=== PATIENT | female | born 1985 | race Caucasian/White ===

== ENCOUNTER → 2019-05-06 | Outpatient (CLI) | payer OTHER ==
[~2019-05-06] MED LIST: DILT60TA3 PO; DOCU50CA9 PO; DULO20CA PO; ERGO500027 PO; GABA600T7 PO; HYDR-2145 PO; LOSA-73 PO; OXYC-325 PO; POTA10TA12 PO; ZOLP5TAB PO
[2019-05-06 12:53] LABS: BASO # 0.1 x10^3/uL (0.0-0.2); BASO % 1 % (0-3); EOS # 0.4 x10^3/uL (0.0-0.7); EOS % 4 % (0-3); HEMATOCRIT 39.6 % (36.0-47.0); HEMOGLOBIN 13.4 g/dL (12.0-15.5); LYMPH % 26 % (24-48); MEAN CORPUSCULAR HEMOGLOBIN 29 pg (25-35); MEAN CORPUSCULAR HGB CONC 34 g/dL (31-37); MEAN CORPUSCULAR VOLUME 86 fL (79-100); MONO # 0.9 x10^3/uL (0.0-1.1); MONO % 8 % (0-9); NEUT # 7.2 x10^3/uL (1.8-7.7); NEUT % 61 % (31-73); PLATELET COUNT 295 x10^3/uL (140-400); RED CELL DISTRIBUTION WIDTH 13.5 % (11.5-14.5); WHITE BLOOD COUNT 11.8 x10^3/uL (4.0-11.0)
[2019-05-06 13:22] LABS: ALBUMIN 4.1 g/dL (3.4-5.0); CALCIUM 9.5 mg/dL (8.5-10.1); CREATININE 0.7 mg/dL (0.6-1.0); GFR 95.2; POTASSIUM 3.6 mmol/L (3.5-5.1); TOTAL BILIRUBIN 0.3 mg/dL (0.2-1.0)
== END ==
LOC: SURGPAT 11:47
PROVIDERS: ATTEND Surgery
DX: Z01.818 Encounter for other preprocedural examination (principal); K82.8 Other specified diseases of gallbladder
CPT/HCPCS: 36415; 80048; 82040; 82247; 85025

== ENCOUNTER 2019-05-11 07:52 | Day surgery (SDC) | payer OTHER ==
[~2019-05-11] VITALS: Ht 157.5 cm; Wt 76.5 kg
[~2019-05-11 07:52] MED LIST changes: +BUPIVACAINE-EPI 0.5%-1:200000 MPF 30 ML VIAL. INJ ONE; -DOCU50CA9 PO; +HYDROmorphone 2 MG/ML VIAL IV PRN; +LIDOCAINE 1% PF 2 ML VIAL. ID PRN; +MORPHINE SULFATE 2 MG/ML VIAL. IV PRN; +ONDANSETRON PF 4 MG/2 ML VIAL. IV PRN; -OXYC-325 PO; +PROCHLORPERAZINE 10 MG/2 ML VIAL. IV PRN; +fentaNYL PF VIAL 100 MCG/2 ML VIAL IV PRN
[2019-05-11] MEDS: IV RINGERS,LACTATED 1000ML 1,000 ML IV SCH ×2 (08:31→11:31)
[2019-05-11] MEDS ORDERED: fentaNYL PF VIAL 100 MCG/2 ML VIAL ONE (08:44)
[2019-05-11] MEDS ORDERED: ROCURONIUM 100 MG/10 ML VIAL. ONE (08:44)
[2019-05-11] MEDS ORDERED: MIDAZOLAM HCL/PF 2 MG/2 ML VIAL. ONE (08:45)
[2019-05-11] MEDS ORDERED: ROCURONIUM 50 MG/5 ML VIAL. ONE (08:45)
[2019-05-11] MEDS ORDERED: KETOROLAC 30 MG/ML VIAL. ONE (08:47)
[2019-05-11] MEDS ORDERED: LIDOCAINE 2% PF 5 ML VIAL. ONE (08:47)
[2019-05-11] MEDS ORDERED: ONDANSETRON PF 4 MG/2 ML VIAL. ONE ×2 (08:47→10:17)
[2019-05-11] MEDS ORDERED: DEXAMETHASONE SOD PHOS 4 MG/ML VIAL ONE ×2 (08:47)
[2019-05-11] MEDS ORDERED: PROPOFOL 20 ML IV ONE (08:47)
[2019-05-11] MEDS ORDERED: IOHEXOL 300 MG/ML 50 ML VIAL. ONE (09:10)
[2019-05-11] MEDS ORDERED: GLUCAGON,HUMAN RECOMBINANT 1 MG/ML VIAL. ONE (09:10)
[2019-05-11] MEDS ORDERED: SURGICEL HEMOSTAT 4X8 EACH. ONE (09:11)
[2019-05-11] MEDS ORDERED: GLYCOPYRROLATE 1 MG/5 ML VIAL. ONE (09:59)
[2019-05-11] MEDS ORDERED: NEOSTIGMINE METHYLSULFATE 5 MG/5 ML SYRINGE. ONE (09:59)
[2019-05-11] MEDS ORDERED: ePHEDrine PF IN SALINE 50 MG/10 ML SYRINGE. IV ONE (10:05)
--- NOTE | 2019-05-11 10:46 | PDOC ---
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
--- NOTE | 2019-05-11 10:49 | DISCH ---
DISCHARGE INSTRUCTIONS Condition on Discharge Condition on Discharge: Stable Activity After Discharge Activity Instructions for Disc: Activity as tolerated, Avoid exertion Lifting Instructions after Dis: No heavy lifting Driving Instructions after Dis: Do not drive (3-4 days) Diet after Discharge Diet after Discharge: Regular Wound Incision Care Wound/Incision Care: Ice to area for comfort Other wound/incision instructi: October shower Saturday Follow-Up Follow up with: David two weeks GENIE KINCAID MD May 11, 2019 10:49
--- NOTE | 2019-05-11 11:01 | OP ---
DATE OF SURGERY: 05/11/2019 PREOPERATIVE DIAGNOSIS: Biliary dyskinesia. POSTOPERATIVE DIAGNOSIS: Biliary dyskinesia. PROCEDURE: Laparoscopic cholecystectomy with cholangiogram. SURGEON: West Kincaid MD SKETCH MAKER: NAIMA Chase ANESTHESIA: General endotracheal. ESTIMATED BLOOD LOSS: Less than 25. INTRAVENOUS FLUIDS: 1000 mL. INDICATIONS: The patient is a 33-year-old with epigastric and right upper quadrant pain with nausea. Gallbladder ejection fraction is 80% and she is brought for cholecystectomy. OPERATIVE FINDINGS: The liver was smooth and sharp. The gallbladder was supple with a few omental adhesions along the inferior surface. Visual inspection of the remainder of the abdomen failed to reveal obvious abnormalities. DESCRIPTION OF PROCEDURE: The patient brought to the operating suite, given a general endotracheal anesthetic and the abdomen prepped and draped in usual sterile fashion. An infraumbilical incision was infiltrated with local anesthetic, incised and a 5 mm Visiport used to gain access into the abdominal cavity. Pneumoperitoneum established. Camera inserted. Inspection carried out with results as noted above. With the table in reverse Trendelenburg rolled to the left, the epigastric and midclavicular ports were placed under direct vision. The lateral port location was used for an "alligator" grasper and the gallbladder was retracted superolaterally. Omental adhesions taken down carefully with blunt dissection and cautery taking care to avoid injury to the adjacent bowel. The cystic duct and cystic artery were identified. Duct was clipped on the gallbladder side. Cholangiograms were made. These were normal. In light of this, the catheter was removed. The cystic duct was clipped x 3 and divided, taking care to avoid injury or compromise the common duct. Cystic artery was clipped and divided and gallbladder freed from the bed with cautery dissection and placed in an EndoCatch bag. Good hemostasis in the fossa with no evidence of bile leak seen. Table returned to level. Gallbladder delivered through the past epigastric incision. Incision closed with interrupted 0 Vicryl. At 6 cm intra-abdominal pressure, no bleeding from the epigastric closure or from the midclavicular port site after its removal or from the location of the alligator grasper after it was removed. Abdomen decompressed, camera slowly removed, no bleeding seen. Skin incisions closed with subcuticular 4-0 Monocryl. Steri-Strips and sterile dressings applied. The patient awakened from her anesthetic and taken to the recovery room in satisfactory condition. WEST KINCAID MD DR: GIBSON/daniela JOB#: [id number] / [id number]
--- NOTE | 2019-05-11 11:03 | RAD ---
Examination: CHOLANGIOGRAM INTRAOPERATIVE History: Intraoperative cholangiogram Comparison/Correlation: None provided this time. Findings: There are 2 frontal images of the right upper quadrant provided. Right upper quadrant cholecystectomy clips are present. Right upper abdominal wire material noted. Contrast is noted within the second of the 2 images. No conclusive extravasation about the cystic duct. Distal common bile narrowing is evident. Common duct otherwise is widely patent and unremarkable. No suspicious filling defects. Impression: Postoperative study. Distal common bile duct narrowing is present near the ampulla of indeterminate therapy. No suspicious filling defects. Electronically signed by: Jah Farley MD (05/11/2019 11:00 AM) [facility]
[2019-05-11] MEDS: fentaNYL PF VIAL 100 MCG/2 ML VIAL IV PRN ×3 (11:24→12:01)
[2019-05-11] MEDS ORDERED: oxyCODONE/APAP 5/325 1 TAB TABLET PO ONE (12:00)
[2019-05-11] MEDS ORDERED: OXYC-325 PO (12:17)
[2019-05-11] MEDS ORDERED: DOCU50CA9 PO (12:19)
[2019-05-11 12:40] VITALS: BP 121/75
== END 2019-05-11 13:05 | disposition home or self-care (01) ==
LOC: SURG 07:52 → EDUNIT# 09:45 → SURG 13:05
PROVIDERS: ATTEND Surgery
DX: K82.8 Other specified diseases of gallbladder (principal); I10 Essential (primary) hypertension; E11.42 Type 2 diabetes mellitus with diabetic polyneuropathy; E66.8 Other obesity; Z68.30 Body mass index [BMI] 30.0-30.9, adult; Z87.442 Personal history of urinary calculi; Z98.890 Other specified postprocedural states; Z90.710 Acquired absence of both cervix and uterus; Z79.84 Long term (current) use of oral hypoglycemic drugs
CPT/HCPCS: 47563; 74300; A7015; J0171; J0690; J0780; J1100; J1885; J2001; J2250; J2405; J2704; J2710; J3010; J3490; J7030; J7120; Q9967; J1610